=== PATIENT | female | born 1995 | race Caucasian/White ===

== ENCOUNTER → 2019-12-20 10:24 | Outpatient (CLI) | payer OTHER, SELFPAY ==
--- NOTE | 2019-12-20 | DI.US.S_ITS ---
PROCEDURE: US PELVIC COMPLETE INDICATIONS: IUD CHECK; PAIN TECHNIQUE: Real-time scanning was performed of the pelvic organs, with image documentation. Additional endovaginal scanning was necessary due to incomplete visualization of the adnexal and endometrial structures by transabdominal scanning. COMPARISON: None. FINDINGS: Transabdominal scanning: Limited scanning through the kidneys shows no hydronephrosis. No pathologic free abdominal or pelvic fluid. Endovaginal scanning: Uterus: Uterus is normal in size at 3.7 x 5.5 x 9.0 cm, anteverted. The endometrium measures 8.5 mm in combined thickness. There is a centrally positioned IUD but low in the lower uterine segment. Ovaries: The ovaries bilaterally appear normal in size and echotexture. IMPRESSION: The uterus is anteverted. An IUD is seen centrally positioned within the endometrial canal but is low in position at the low uterine segment. This position, also in the setting of anteverted uterus, would predispose to tenderness. Dictated by: Bradley Maddox M.D. on 12/20/2019 at 13:19 Approved by: Bradley Maddox M.D. on 12/20/2019 at 13:21
== END ==
PROVIDERS: Referring Provider Obstetrics & Gynecology; Visit Provider Obstetrics & Gynecology
DX: R10.2 Pelvic and perineal pain (principal); N94.12 Deep dyspareunia; Z30.431 Encounter for routine checking of intrauterine contraceptive device
CPT/HCPCS: 76830; 76856

== ENCOUNTER → 2020-06-05 08:30 | Outpatient (CLI) | payer OTHER, SELFPAY ==
--- NOTE | 2020-06-05 | DI.US.S_ITS ---
PROCEDURE: US PELVIC COMPLETE INDICATIONS: IUD CHECK TECHNIQUE: Real-time scanning was performed of the pelvic organs, with image documentation. Additional endovaginal scanning was necessary due to incomplete visualization of the adnexal and endometrial structures by transabdominal scanning. COMPARISON: None. FINDINGS: Transabdominal scanning: Limited scanning through the kidneys shows no hydronephrosis. No pathologic free abdominal or pelvic fluid. Endovaginal scanning: Uterus: Uterus is normal in size at 8.5 x 3.2 x 5.5 cm. The endometrium measures 3.0 mm in combined thickness. Echotexture of the uterus is normal. Intrauterine device is centrally positioned within the uterus. Ovaries: Right ovary measures 3.8 x 1.8 x 2.5 centimeters. Left ovary measures 3.2 x 2.0 x 2.7 centimeters. Ovaries are sonographically normal. IMPRESSION: Intrauterine device centrally positioned within the uterus. Dictated by: Lexis Vaz MD, PhD on 06/05/2020 at 15:30 Approved by: Lexis Vaz MD, PhD on 06/05/2020 at 15:31
== END ==
PROVIDERS: PCP Family Medicine; Referring Provider Advanced Practice Midwife; Visit Provider Advanced Practice Midwife
DX: Z30.431 Encounter for routine checking of intrauterine contraceptive device (principal)
CPT/HCPCS: 76830; 76856

== ENCOUNTER 2021-06-28 07:51 | Emergency (ER) | payer OTHER, SELFPAY ==
[2021-06-28 08:12] VITALS: BP 123/88; PULSE 78; RESP 16; TEMP 36.2; O2SAT 98; BMI 29.2
[2021-06-28 08:27] LABS: RBC Urine None Seen (0-5/HPF)
[2021-06-28 08:31] LABS: Pregnancy Test Urine Negative (Negative)
[2021-06-28 08:34] LABS: Amorphous Sediment Urine 2+; Bacteria Urine Few (2-10); Culture Indicated Urine Cult Not Indicated; Squamous Epithelial Cell Urine 10-30 /HPF (0-5/HPF); WBC Urine 1-5/HPF (0-5/HPF)
[2021-06-28 08:39] LABS: Add Manual Diff / Slide Review NO; Basophils Absolute Auto 0 /uL (0-100); Basophils Percent Auto 0.8 % (0-2); Eosinophils Absolute Auto 100 /uL (0-450); Eosinophils Percent Auto 1.4 % (2-4); Hematocrit 41.6 % (36-46); Hemoglobin 13.9 g/dL (12.0-16.0); Lymphocytes Absolute Auto 2500 /uL (1100-4500); Lymphocytes Percent Auto 39.6 % (25-40); Mean Corpuscular HGB Conc 33.3 % (30-36); Mean Corpuscular Hemoglobin 31.1 PG (26-34); Mean Corpuscular Volume 93.3 fL (80-100); Monocytes Absolute Auto 500 /uL (0-900); Monocytes Percent Auto 8.7 % (3-14); Neutrophils Absolute Auto 3100 /uL (1500-7000); Neutrophils Percent Auto 49.5 % (50-75); Platelet Count 265 X10^3/uL (150-400); Red Blood Cell Count 4.47 X10^6/uL (4.0-5.2); Red Cell Distribution Width 12.5 % (11.6-14.8); White Blood Cell Count 6.2 X10^3/uL (4.5-11.0)
[2021-06-28 08:42] LABS: BUN Creatinine Ratio 18.8 (6-22); Blood Urea Nitrogen 12 mg/dL (7-17); Calcium 9.1 mg/dL (8.4-10.2); Carbon Dioxide 24 mmol/L (22-32); Chloride 107 mmol/L (98-107); Estimated Glomerular Filt Rate > 60.0 mL/min (>60); Ethanol (ETOH) 177 mg/dL; Glucose 96 mg/dL (70-100); HEMOLYSIS < 15 (0-50); Potassium 4.3 mmol/L (3.4-5.1); Sodium 141 mmol/L (137-145)
--- NOTE | 2021-06-28 11:19 | ED_ITS ---
HPI - Alcohol General Chief Complaint: Toxicology Problem Stated Complaint: WANTS ALCOHOL DETOX Time Seen by Provider: 06/28/21 11:19 Source: patient Mode of arrival: Family Vehicle Limitations: no limitations History of Present Illness HPI narrative: This is a 25-year-old female who comes to the emergency departmen t requesting medication to help with alcohol withdrawal. Patient would like to stop drinking alcohol. Her last drink was last night. She does not wish to go inpatient facility. She has tried AA in the past but has not found particularly helpful. She had heard that there is medication that can be helpful for stopping alcohol use. She states she drinks about 15 beers daily. She has found that it is inhibiting her relationships and current life situation. She has been shaky in the past but she has never had seizures, hallucination or altered mental status. Patient denies any other medical issues. She denies any prior surgeries. She denies any daily medications. She denies any tobacco. She denies any THC or recreational drugs. Patient is open to being contacted by social Work over the phone. She does not have a primary care to follow up with. We did discuss their options such as Antabuse which can be a daily medication if she is interested but would need a primary care physician to help prescribed this. Related Data Previous Rx's Medication Instructions Recorded chlordiazepoxide HCl 25 mg capsule 25 mg PO Q6H #11 cap 06/28/21 Allergies Allergy/AdvReac Type Severity Reaction Status Date / Time No Known Drug Allergies Allergy Verified 06/28/21 08:09 Review of Systems Review of Systems ROS Unobtainable: All systems reviewed & are unremarkable except as noted in HPI and below Patient History Social History Smoking Status: Current every day smoker Smoking Status: Current every day smoker tobacco type: cigarettes alcohol intake frequency: 3 or more drinks per day Alcohol type: beer Substance Use Type: does not use Exam Narrative Exam Narrative: GENERAL: Alert and oriented x three, female in mild distress. HEENT: Head normocephalic, atraumatic, EOMI, pupils reactive, face symmetric, moist mucous membranes NECK: Supple, full range of motion CARDIOVASCULAR: Regular rate and rhythm without murmurs, rubs or gallops. RESPIRATORY: Breath sounds equal bilaterally, no wheezes rales or rhonchi. ABDOMEN: Soft, nontender. Normoactive bowel sounds all 4 quadrants. No guarding or rebound, rigidity, no mass : No CVA tenderness EXTREMITIES: Normal range of motion, no clubbing or edema. Neurovascularly intact NEUROLOGICAL: Cranial nerves II through XII grossly intact. Moving all ex tremities. No tremor. SKIN: Warm, dry, no petechiae, no rashes or lesions. Initial Vital Signs Initial Vital Signs: Vital Signs Temperature 97.2 F L 06/28/21 08:12 Pulse Rate 78 06/28/21 08:12 Respiratory Rate 16 06/28/21 08:12 Blood Pressure 123/88 06/28/21 08:12 Pulse Oximetry 98 06/28/21 08:12 Course Orders Ordered: ED Orders 06/28/21 08:18 Urine Drug Screen, Rapid Stat 06/28/21 08:20 CBC Auto Diff [Complete Blood Count AUTO DIFF] Stat CHEM7 [Basic Metabolic Panel] Stat Ethanol (ETOH) Stat Test Urine Stat Urine Microscopic Stat Vital Signs Vital signs: Vital Signs - 8 hr 06/28/21 08:12 06/28/21 11:26 Temperature 97.2 F L Pulse Rate 78 83 Respiratory Rate 16 Blood Pressure 123/88 119/76 Pulse Oximetry 98 97 MDM - Alcohol Lab Data Result diagrams: 06/28/21 08:20 06/28/21 08:20 Labs: Lab Results 06/28/21 06/28/21 06/28/21 Range/Units 08:20 08:20 08:20 WBC 6.2 (4.5-11.0) X10^3/uL RBC 4.47 (4.0-5.2) X10^6/uL Hgb 13.9 (12.0-16.0) g/dL Hct 41.6 (36-46) % MCV 93.3 (80-100) fL MCH 31.1 (26-34) PG MCHC 33.3 (30-36) % RDW 12.5 (11.6-14.8) % Plt Count 265 (150-400) X10^3/uL Neut % (Auto) 49.5 L (50-75) % Lymph % (Auto) 39.6 (25-40) % [place] % (Auto) 8.7 (3-14) % Eos % (Auto) 1.4 L (2-4) % Baso % (Auto) 0.8 (0-2) % Neut # (Auto) 3100 (6473-3254) /uL Lymph # (Auto) 2500 (3423-3542) /uL [place] # (Auto) 500 (0-900) /uL Eos # (Auto) 100 (0-450) /uL Baso # (Auto) 0 (0-100) /uL Sodium 141 (137-145) mmol/L Potassium 4.3 (3.4-5.1) mmol/L Chloride 107 (98-107) mmol/L Carbon Dioxide 24 (22-32) mmol/L BUN 12 (7-17) mg/dL Creatinine 0.64 (0.52-1.04) mg/dL Estimated GFR > 60.0 (>60) mL/min BUN/Creatinine Ratio 18.8 (6-22) Glucose 96 (70-100) mg/dL Calcium 9.1 (8.4-10.2) mg/dL Urine RBC None seen (0-5/HPF) Urine WBC 1-5/hpf (0-5/HPF) Ur Squamous Epith Cells 10-30 /hpf H (0-5/HPF) Amorphous Sediment 2+ Urine Bacteria Few (2-10) H (None) Ur Culture Indicated? Cult not indicated Urine Test (Negative) U Opiates 300ng/mL cut (Negative) Ur Oxycodone Screen (Negative) Urine Methadone Screen (Negative) Ur Barbiturates Screen (Negative) U Tricyclic Antidepress (Negative) Ur Phencyclidine Scrn (Negative) Ur Amphetamines Screen (Negative) U Methamphetamines Scrn (Negative) Ur MDMA Scrn (Ecstasy) (Negative) U Benzodiazepines Scrn (Negative) Urine Cocaine Screen (Negative) U Marijuana (THC) Screen (Negative) Ethyl Alcohol 177 H ( - 10) mg/dL 06/28/21 06/28/21 Range/Units 08:20 08:20 WBC (4.5-11.0) X10^3/uL RBC (4.0-5.2) X10^6/uL Hgb (12.0-16.0) g/dL Hct (36-46) % MCV (80-100) fL MCH (26-34) PG MCHC (30-36) % RDW (11.6-14.8) % Plt Count (150-400) X10^3/uL Neut % (Auto) (50-75) % Lymph % (Auto) (25-40) % [place] % (Auto) (3-14) % Eos % (Auto) (2-4) % Baso % (Auto) (0-2) % Neut # (Auto) (6952-1459) /uL Lymph # (Auto) (0062-1311) /uL [place] # (Auto) (0-900) /uL Eos # (Auto) (0-450) /uL Baso # (Auto) (0-100) /uL Sodium (137-145) mmol/L Potassium (3.4-5.1) mmol/L Chloride (98-107) mmol/L Carbon Dioxide (22-32) mmol/L BUN (7-17) mg/dL Creatinine (0.52-1.04) mg/dL Estimated GFR (>60) mL/min BUN/Creatinine Ratio (6-22) Glucose (70-100) mg/dL Calcium (8.4-10.2) mg/dL Urine RBC (0-5/HPF) Urine WBC (0-5/HPF) Ur Squamous Epith Cells (0-5/HPF) Amorphous Sediment Urine Bacteria (None) Ur Culture Indicated? Urine Test Negative (Negative) U Opiates 300ng/mL cut Negative (Negative) Ur Oxycodone Screen Negative (Negative) Urine Methadone Screen Negative (Negative) Ur Barbiturates Screen Negative (Negative) U Tricyclic Antidepress Negative (Negative) Ur Phencyclidine Scrn Negative (Negative) Ur Amphetamines Screen Negative (Negative) U Methamphetamines Scrn Negative (Negative) Ur MDMA Scrn (Ecstasy) Negative (Negative) U Benzodiazepines Scrn Negative (Negative) Urine Cocaine Screen Negative (Negative) U Marijuana (THC) Screen Negative (Negative) Ethyl Alcohol ( - 10) mg/dL MDM Narrative Medical decision making narrative: This is a 25-year-old female requesting alcohol detox. Patient prefers to return home and attempt with oral medication. She has tried a in the past has not been very helpful but she is open to having social Work reach out to her. She is comfortable returning home without having a [id number] conversation. Patient does not have a primary care physician so also attempt to her sure referral for options for follow-up. Patient's labs are reassuring. Patient does not appear to be in acute withdrawal at this moment. Discharge Plan Departure Patient Disposition: Home Clinical Impression: Alcohol abuse, Medication requested Instructions: Alcohol and Stress: There are Safer Ways to [place], Drug and Alcohol Withdrawal Activity Restrictions/Additional Instructions: Follow-up with a primary care provider for recheck and options for daily medications that might be helpful with cessation of alcohol use. Our social psychologist will be contacting you for possible resources and also to potentially help you find a primary care physician. I wish you luck in your goal at alcohol cessation. Take medication as prescribed. This medication can make you sleepy do not drive, perform hazardous activities or make any major decisions while taking it. Do not take this medication if you are actively drinking alcohol. Prescription sent to [facility] in [place]. Please return for altered mental status, passing out, new chest pain or shortness of breath, persistent vomiting, worsening shaking, hallucinations, seizure-like activity or other new or concerning symptoms. Prescriptions: New chlordiazepoxide HCl 25 mg capsule 25 mg PO Q6H Qty: 11 RF: 0 Referrals: Nikita Srivastava MD [Primary Care Provider] -
[2021-06-28 11:26] VITALS: BP 119/76; PULSE 83; O2SAT 97
[2021-06-28 11:47] LABS: UR Morphine/Opiate cutoff 300 Negative (Negative); Ur Creatinine Normal (Normal); Ur Specific Gravity Normal (Normal); Urine Amphetamines Negative (Negative); Urine Barbiturates Negative (Negative); Urine Benzodiazepines Negative (Negative); Urine Cocaine Negative (Negative); Urine MDMA Negative (Negative); Urine Methadone Negative (Negative); Urine Methamphetamines Negative (Negative); Urine Oxycodone Negative (Negative); Urine Phencyclidine Negative (Negative); Urine Tetrahydrocannabinol Negative (Negative); Urine Tricyclic Antidepressant Negative (Negative); Urine pH Normal (Normal)
--- NOTE | 2021-06-28 16:16 | CM.SWNOTE ---
CERAMIC SAW TENDER F/U Note CERAMIC SAW TENDER receives consult after patient d/c's from ED. Patient is 25 y/o female who presented to the ED seeking ETOH detox, patient choice to detox at home after medical clearance. ED provider Dr. Cook informs CERAMIC SAW TENDER that patient is in need of establishing care with PCP for f/u. CERAMIC SAW TENDER calls patient and patient endorses that she has tried to establish care with a PCP but could not find a provider with openings. Patient endorses that her insurance company even tried to assist her. CERAMIC SAW TENDER endorses that CERAMIC SAW TENDER can see if [facility] or [facility] providers in [place] have openings and patient indicates agreement. CERAMIC SAW TENDER calls [facility] provider line and it is reported that there are no providers with openings. CERAMIC SAW TENDER calls [facility] provider line and patient is scheduled for ED f/u appt with ELI Isaac for Thursday07/05/21 at 2:30 pm. It is reported that patient will need to schedule establish care appt following this ED f/u appt. CERAMIC SAW TENDER calls patient and leaves VM with patient with this information and address for [facility]. CERAMIC SAW TENDER endorses that patient can return call with any further questions or inquiries. Plan: patient to f/u with PCP appt on 07/05/21
== END 2021-06-28 11:58 | disposition home or self-care (01) ==
PROVIDERS: Emergency Provider Emergency Medicine; PCP Family Medicine
DX: F10.129 Alcohol abuse with intoxication, unspecified (principal); Y90.6 Blood alcohol level of 120-199 mg/100 ml
CPT/HCPCS: 36415; 80048; 80305; 80320; 81015; 81025; 85025; 99283

== ENCOUNTER 2021-08-20 08:52 | Emergency (ER) | payer OTHER, SELFPAY ==
[2021-08-20 08:55] VITALS: BP 156/113; PULSE 84; RESP 14; TEMP 36.2; O2SAT 98; BMI 28.3
--- NOTE | 2021-08-20 09:21 | PC.NURSE ---
Patient reports hitting her head three times while trying to pull tractor into a trailer. patient state she had no initial LOC but after walking up driveway passed out patient has small scab to top of head, reports headache, with couple episodes of vomiting. Tenderness to neck, no C Spine tenderness. Not on thinners.
[2021-08-20 09:23] VITALS: BP 143/94; PULSE 66; RESP 12; O2SAT 98
--- NOTE | 2021-08-20 15:37 | ED_ITS ---
HPI - Head Injury General Chief complaint: Head Injury Stated complaint: POSS CONCUSSION Time Seen by Provider: 08/20/21 08:57 Source: patient Mode of arrival: Ambulatory Limitations: no limitations History of Present Illness HPI Narrative: 26-year-old female daily smoker with no significant medical history presents with a chief complaint of ongoing symptoms after a head injury a few days ago. She states that she was transferring heavy objects into a vehicle and hit her head on the roof for tailgate a few times. She has full recall of the event, is acting at her neurologic baseline per friends and family. She did have what she thinks was a brief level of consciousness few minutes after the event but nothing in the past few days. She states that she vomited yesterday morning and again this morning but is otherwise well and free of complaint. She takes no blood thinners Related Data Previous Rx's Medication Instructions Recorded chlordiazepoxide HCl 25 mg capsule 25 mg PO Q6H #11 cap 06/28/21 ondansetron 4 mg disintegrating 4 mg PO TID-QID PRN #10 tab 08/20/21 tablet Allergies Allergy/AdvReac Type Severity Reaction Status Date / Time No Known Drug Allergies Allergy Verified 08/20/21 09:00 Review of Systems Review of Systems Narrative: GENERAL: Denies chills, fatigue, malaise, fever, sweats. HEENT: Denies sinus pain, ear pain, sore throat, difficulty swallowing, dizziness. RESPIRATORY: Denies dyspnea, cough, wheezing, hemoptysis, sputum. CARDIOVASCULAR: Denies chest pain, palpitations, orthopnea, edema, GASTROINTESTINAL: See HPI : Denies dysuria, frequency, incontinence, hematuria, urinary retention. MUSCULOSKELETAL: denies weakness, joint pain, or bony pain SKIN: Denies rash, skin lesions, or other NEUROLOGIC: See HPI PSYCHIATRIC: No concerning psychosocial issues. 12 point review of systems is negative except for those stated above Patient History Social History Smoking Status: Current every day smoker Smoking Status: Current every day smoker tobacco type: cigarettes alcohol intake frequency: 3 or more drinks per day Alcohol type: beer Substance Use Type: does not use Exam Narrative Exam Narrative: GENERAL: [26] year old patient appears stated age. Well- developed patient, in mild distress. GCS 15 HEAD: Atraumatic. Normocephalic. No hematoma or evidence of depressed skull fracture EYES: Pupils equal round and reactive. No hyphema Extraocular motions intact. No scleral icterus. No injection or drainage. ENT: Nose without bleeding, purulent drainage. Throat without erythema, tonsillar hypertrophy or exudate. Airway patent. NECK: Trachea midline. Non tender, no step-offs or crepitance CARDIOVASCULAR: Regular rate and rhythm without murmurs, gallops, or rubs. RESPIRATORY: Clear to auscultation. Breath sounds equal bilaterally. No wheezes, rales, or rhonchi. GASTROINTESTINAL: Abdomen soft, non-tender, nondistended. EXTREMITIES: No edema or joint tenderness. BACK: Nontender without deformity or crepitance. No flank tenderness. NEURO: AOx3. SKIN: No rash or erythema of visible areas Initial Vital Signs Initial Vital Signs: Vital Signs Temperature 97.2 F L 08/20/21 08:55 Pulse Rate 84 08/20/21 08:55 Respiratory Rate 14 08/20/21 08:55 Blood Pressure 156/113 H 08/20/21 08:55 Pulse Oximetry 98 08/20/21 08:55 Course Vital Signs Vital signs: Vital Signs - 8 hr 08/20/21 08:55 08/20/21 09:23 Temperature 97.2 F L Pulse Rate 84 66 Respiratory Rate 14 12 Blood Pressure 156/113 H 143/94 H Pulse Oximetry 98 98 MDM - Head Injury MDM Narrative Medical decision making narrative: Extensive discussion with the patient, we reviewed the [place] head CT rules and discussed the risks and benefits of imaging. After this discussion we sure the opinion that holding off on imaging for now is most appropriate, she has been given return precautions and questions have been answered to her apparent satisfaction Discharge Plan Departure Patient Disposition: Home Clinical Impression: Closed head injury Qualifiers: Encounter type: initial encounter Qualified Code(s): S09.90XA - Unspecified injury of head, initial encounter Instructions: Concussion Activity Restrictions/Additional Instructions: *You have been diagnosed with [head injury with concussion] *What to do: *Please continue to take your regular medications as directed. [x ] New medication prescriptions sent to your pharmacy: [[facility] in [place] ] [ ] New medication written as a paper prescription [ ] No new medications given *You have a slight concussion and will likely have a mild headache and some nausea for a few days. Avoiding highly stimulating activities and even TV or computers may be helpful in minimizing your symptoms. Avoid activities that will put you at risk for another head injury for at least a week. You can take tylenol or motrin for headache or the prescription provided for nausea/vomiting. Return for worsening or persistent symptoms *If you do not have a primary care provider please contact the [facility] Resource line at [phone]. They will ask some questions about your medical history and help get you set up with a doctor in the community. *Return to Emergency Department if you should have any new, worsening or concerning symptoms, such as [fever greater than 101 F, shaking chills, worsening pain, persistent vomiting or other bothersome symptoms] Prescriptions: New ondansetron 4 mg tablet,disintegrating 4 mg PO TID-QID PRN (Reason: nausea and vomiting) Qty: 10 RF: 0 No Action chlordiazepoxide HCl 25 mg capsule 25 mg PO Q6H Qty: 11 RF: 0 Referrals: Nikita Srivastava MD [Primary Care Provider] - Stand Alone Forms: Work Release Note
== END 2021-08-20 09:23 | disposition home or self-care (01) ==
PROVIDERS: Emergency Provider Emergency Medicine; PCP Family Medicine
DX: S09.90XA Unspecified injury of head, initial encounter (principal); W22.8XXA Striking against or struck by other objects, initial encounter
CPT/HCPCS: 99281

== ENCOUNTER 2022-06-02 18:40 | Emergency (ER) | payer OTHER, MEDICAID, SELFPAY ==
[2022-06-02 18:45] VITALS: BP 160/86; PULSE 98; RESP 18; TEMP 36.5; O2SAT 95; BMI 28.3
--- NOTE | 2022-06-02 18:57 | DI.RAD.S_ITS ---
PROCEDURE: XR CHEST 1V INDICATIONS: chest pain TECHNIQUE: One view of the chest was acquired. COMPARISON: None. FINDINGS: Surgical changes and devices: None. Lungs and pleura: Lungs are clear. No pleural effusions or pneumothorax. Mediastinum: Mediastinal contours appear normal. Heart size is normal. Bones and chest wall: No suspicious bony lesions. Overlying soft tissues appear unremarkable. IMPRESSION: No acute cardiopulmonary abnormality. Dictated by: Ronen Niño M.D. on 06/02/2022 at 20:17 Approved by: Ronen Niño M.D. on 06/02/2022 at 20:18
[2022-06-02 19:06] LABS: Add Manual Diff / Slide Review NO; Basophils Absolute Auto 100 /uL (0-100); Basophils Percent Auto 0.8 % (0-2); Eosinophils Absolute Auto 100 /uL (0-450); Eosinophils Percent Auto 0.9 % (2-4); Hematocrit 43.4 % (36-46); Hemoglobin 14.9 g/dL (12.0-16.0); Lymphocytes Absolute Auto 2900 /uL (1100-4500); Lymphocytes Percent Auto 46.4 % (25-40); Mean Corpuscular HGB Conc 34.2 % (30-36); Mean Corpuscular Hemoglobin 31.9 PG (26-34); Mean Corpuscular Volume 93.1 fL (80-100); Monocytes Absolute Auto 700 /uL (0-900); Monocytes Percent Auto 11.4 % (3-14); Neutrophils Absolute Auto 2500 /uL (1500-7000); Neutrophils Percent Auto 40.5 % (50-75); Platelet Count 322 X10^3/uL (150-400); Red Blood Cell Count 4.66 X10^6/uL (4.0-5.2); Red Cell Distribution Width 13.2 % (11.6-14.8); White Blood Cell Count 6.2 X10^3/uL (4.5-11.0)
[2022-06-02 19:21] LABS: Alanine Aminotransferase 70 IU/L (<35); Albumin 4.6 g/dL (3.5-5.0); Albumin Globulin Ratio 1.4 (1.0-2.8); Alkaline Phosphatase 42 U/L (38-126); Aspartate Aminotransferase 61 IU/L (14-36); BUN Creatinine Ratio 13.5 (6-22); Bilirubin Total 0.3 mg/dL (0.2-1.3); Blood Urea Nitrogen 10 mg/dL (7-17); Calcium 8.9 mg/dL (8.4-10.2); Carbon Dioxide 26 mmol/L (22-32); Chloride 106 mmol/L (98-107); Creatine Kinase 97 U/L (30-135); Estimated Glomerular Filt Rate > 60 mL/min (>60); Globulin 3.3 g/dL (1.7-4.1); Glucose 106 mg/dL (70-100); HEMOLYSIS < 15 (0-50); Lipase 160 U/L (23-300); Magnesium 2.2 mg/dL (1.6-2.3); Potassium 4.2 mmol/L (3.4-5.1); Sodium 142 mmol/L (137-145); Total Protein 7.9 g/dL (6.3-8.2)
[2022-06-02 19:33] LABS: Troponin I < 0.012 ng/mL (0.01-0.034)
[2022-06-02 20:31] VITALS: PULSE 98; O2SAT 99
[2022-06-02 20:33] VITALS: BP 127/85; PULSE 91; O2SAT 96
--- NOTE | 2022-06-02 20:50 | PC.NURSE ---
Patient pacing in hallway requesting IV to be removed so she can leave. Redirected patient to room, after discussion patient agreeable to stay and wait for evaluation by provider.
--- NOTE | 2022-06-03 06:23 | ED.CHESTPAIN ---
HPI - Chest Pain General Chief Complaint: Chest Pain Stated Complaint: Chest pain Time Seen by Provider: 06/02/22 20:48 Source: patient Mode of arrival: Ambulatory Limitations: no limitations History of Present Illness HPI narrative: Patient LWBS prior to being evaluated. Patient's EKG, CBC, CMP, lipase and troponin are all negative. Related Data Previous Rx's Medication Instructions Recorded chlordiazepoxide HCl 25 mg capsule 25 mg PO Q6H #11 caps 06/28/21 ondansetron 4 mg disintegrating 4 mg PO TID-QID PRN nausea and 08/20/21 tablet vomiting #10 tabs Allergies Allergy/AdvReac Type Severity Reaction Status Date / Time No Known Drug Allergies Allergy Verified 06/02/22 23:15 Patient History Social History Smoking Status: Current every day smoker Smoking Status: Current every day smoker tobacco type: cigarettes alcohol intake frequency: 3 or more drinks per day Alcohol type: beer Substance Use Type: does not use Exam Initial Vital Signs Initial Vital Signs: Vital Signs Temperature 97.7 F 06/02/22 18:45 Pulse Rate 98 H 06/02/22 18:45 Respiratory Rate 18 06/02/22 18:45 Blood Pressure 160/86 H 06/02/22 18:45 Pulse Oximetry 95 06/02/22 18:45 Oxygen Delivery Method 06/02/22 18:45 MDM - Chest Pain Lab Data Result diagrams: 06/02/22 18:50 06/02/22 18:50 Labs: Lab Results 06/02/22 06/02/22 Range/Units 18:50 18:50 WBC 6.2 (4.5-11.0) X10^3/uL RBC 4.66 (4.0-5.2) X10^6/uL Hgb 14.9 (12.0-16.0) g/dL Hct 43.4 (36-46) % MCV 93.1 (80-100) fL MCH 31.9 (26-34) PG MCHC 34.2 (30-36) % RDW 13.2 (11.6-14.8) % Plt Count 322 (150-400) X10^3/uL Neut % (Auto) 40.5 L (50-75) % Lymph % (Auto) 46.4 H (25-40) % [place] % (Auto) 11.4 (3-14) % Eos % (Auto) 0.9 L (2-4) % Baso % (Auto) 0.8 (0-2) % Neut # (Auto) 2500 (4148-7671) /uL Lymph # (Auto) 2900 (4594-6196) /uL [place] # (Auto) 700 (0-900) /uL Eos # (Auto) 100 (0-450) /uL Baso # (Auto) 100 (0-100) /uL Sodium 142 (137-145) mmol/L Potassium 4.2 (3.4-5.1) mmol/L Chloride 106 (98-107) mmol/L Carbon Dioxide 26 (22-32) mmol/L BUN 10 (7-17) mg/dL Creatinine 0.74 (0.52-1.04) mg/dL Estimated GFR > 60 (>60) mL/min BUN/Creatinine Ratio 13.5 (6-22) Glucose 106 H (70-100) mg/dL Calcium 8.9 (8.4-10.2) mg/dL Magnesium 2.2 (1.6-2.3) mg/dL Total Bilirubin 0.3 (0.2-1.3) mg/dL AST 61 H (14-36) IU/L ALT 70 H (<35) IU/L Alkaline Phosphatase 42 (38-126) U/L Total Creatine Kinase 97 (30-135) U/L CK-MB (CK-2) TNP CK-MB (CK-2) Rel Index TNP Troponin I < 0.012 (0.01-0.034) ng/mL Total Protein 7.9 (6.3-8.2) g/dL Albumin 4.6 (3.5-5.0) g/dL Globulin 3.3 (1.7-4.1) g/dL Albumin/Globulin Ratio 1.4 (1.0-2.8) Lipase 160 (23-300) U/L Discharge Plan Departure Patient Disposition: Left Without Being Seen Clinical Impression: Patient left before evaluation by physician
== END 2022-06-02 21:53 | disposition left against medical advice (07) ==
PROVIDERS: Emergency Provider Emergency Medicine; PCP Family Medicine
DX: R07.9 Chest pain, unspecified (principal)
CPT/HCPCS: 36415; 71045; 80053; 82550; 83690; 83735; 84484; 85025; 93005; 99283

== ENCOUNTER 2022-06-02 23:09 | Emergency (ER) | payer OTHER, MEDICAID, SELFPAY ==
[2022-06-02 23:15] VITALS: BP 156/92; PULSE 99; RESP 18; TEMP 36.6; O2SAT 93; BMI 28.3
[2022-06-03 01:50] LABS: Ethanol (ETOH) 371 mg/dL
[2022-06-03 01:55] LABS: Troponin I < 0.012 ng/mL (0.01-0.034)
[2022-06-03 02:10] LABS: COVID19 -Nasal RAPID Negative (Negative)
[2022-06-03 02:22] LABS: D Dimer 250 ng/mL (<230)
--- NOTE | 2022-06-03 02:39 | ED.CHESTPAIN ---
HPI - Chest Pain General Chief Complaint: Chest Pain Stated Complaint: chest pain Time Seen by Provider: 06/03/22 00:07 Source: patient Mode of arrival: Ambulatory Limitations: no limitations History of Present Illness HPI narrative: This is a 26-year-old female with complaint of 6 weeks of left-sided chest pain she describes underneath her breast she states it has been mild until today. Patient was here earlier today, left without being seen but did have labs including troponin, EKG, CBC, CMP and lipase which did not show any acute change. Patient states she has not had any recent trauma or injuries they did do some lifting of heavy furniture recently. She denies any syncope or passing out. She states it is worse with deep inspiration. She is had some shortness of breath. No cough, cold or congestion. She has had some nausea and vomiting particularly in the mornings. No diarrhea, constipation or urinary symptoms. No swelling in her extremities. She denies any past medical issues. She denies any surgeries. She does have a ParaGard IUD, she does smoke, she drinks at least a 6 pack daily and does get withdrawal if she does not have alcohol the following day, denies any illicit or THC. She has had long distance travel several hours in a car sometimes 8 hours at a time several times over the past couple months. She is accompanied by a friend at bedside. Related Data Previous Rx's Medication Instructions Recorded chlordiazepoxide HCl 25 mg capsule 25 mg PO Q6H #11 caps 06/28/21 ondansetron 4 mg disintegrating 4 mg PO TID-QID PRN nausea and 08/20/21 tablet vomiting #10 tabs Allergies Allergy/AdvReac Type Severity Reaction Status Date / Time No Known Drug Allergies Allergy Verified 06/02/22 23:15 Review of Systems Review of Systems ROS Unobtainable: All systems reviewed & are unremarkable except as noted in HPI and below Patient History Social History Smoking Status: Current every day smoker Smoking Status: Current every day smoker tobacco type: cigarettes alcohol intake frequency: 3 or more drinks per day Alcohol type: beer Substance Use Type: does not use Exam Narrative Exam Narrative: GENERAL: Alert and oriented x three, female in [id number] distress. HEENT: Head normocephalic, atraumatic, EOMI, pupils reactive, face symmetric, moist mucous membranes NECK: Supple, full range of motion CARDIOVASCULAR: Regular rate and rhythm without murmurs, rubs or gallops. RESPIRATORY: Breath sounds equal bilaterally, no wheezes rales or rhonchi. Non reproducible chest pain. No tachypnea accessory muscle use. ABDOMEN: Soft, nontender. Normoactive bowel sounds all 4 quadrants. No guarding or rebound, rigidity, no mass : No CVA tenderness EXTREMITIES: Normal range of motion, no clubbing or edema. Neurovascularly intact NEUROLOGICAL: Cranial nerves II through XII grossly intact. Moving all extremities SKIN: Warm, dry, no petechiae, no rashes or lesions. Initial Vital Signs Initial Vital Signs: Vital Signs Temperature 97.8 F 06/02/22 23:15 Pulse Rate 99 H 06/02/22 23:15 Respiratory Rate 18 06/02/22 23:15 Blood Pressure 156/92 H 06/02/22 23:15 Pulse Oximetry 93 06/02/22 23:15 Oxygen Delivery Method 06/02/22 23:15 Course Orders Ordered: ED Orders 06/03/22 00:40 ETOH [Ethanol (ETOH)] Stat Trop I [Troponin I] Stat 06/03/22 01:15 D Dimer Stat 06/03/22 01:25 COVID19 -Nasal RAPID/Pre-Proc Stat 06/03/22 02:56 CT angio chest PE protocol Stat 06/03/22 03:00 Urine Culture Stat Urine Microscopic Stat Discontinued Medications Ketorolac Tromethamine (Ketorolac 30 Mg/Ml Vial) 15 mg IV NOW ONE Stop: 06/03/22 02:58 Last Admin: 06/03/22 03:05 Dose: 15 mg Documented By: MLLiv Vital Signs Vital signs: Vital Signs - 8 hr 06/02/22 23:15 06/03/22 04:11 Temperature 97.8 F Pulse Rate 99 H 85 Respiratory Rate 18 Blood Pressure 156/92 H 117/80 Pulse Oximetry 93 97 Oxygen Delivery Method Room Air Room Air MDM - Chest Pain Lab Data Labs: Lab Results 06/03/22 06/03/22 06/03/22 Range/Units 00:40 01:15 01:25 D-Dimer 250 H (<230) ng/mL Troponin I < 0.012 (0.01-0.034) ng/mL Urine RBC (0-5/HPF) Urine WBC (0-5/HPF) Ur Squamous Epith Cells (0-5/HPF) Urine Bacteria (None) Ur Culture Indicated? Ethyl Alcohol 371 H ( - 10) mg/dL SARS-CoV-2 (PCR) Negative (Negative) 06/03/22 Range/Units 03:00 D-Dimer (<230) ng/mL Troponin I (0.01-0.034) ng/mL Urine RBC 0-1/hpf (0-5/HPF) Urine WBC 0-1/hpf (0-5/HPF) Ur Squamous Epith Cells 1-5 /hpf D (0-5/HPF) Urine Bacteria Few (2-10) H (None) Ur Culture Indicated? Specimen cultured Ethyl Alcohol ( - 10) mg/dL SARS-CoV-2 (PCR) (Negative) Point of Care Testing Test Results Negative Urine Dip Bedside Urine Glucose Negative Bedside Urine Bilirubin - Negative Bedside Urine Ketone - Negative Urine Specific Sharon 1.015 Bedside Urine Occult Blood +++ Bedside Urine pH 6.5 Bedside Urine Protein - Negative Bedside Urine Urobilinogen - Negative Bedside Urine Nitrite - Negative Bedside Urine Leukocytes + 70 Esterase Imaging Data Chest x-ray: Radiologist's Impression: Patite Garcia??26??F??1995 ? Allergy/Adv: No Known Drug Allergies Close Chest X-Ray (Signed) RenayRonen - 06/02/22 Pelvis Ultrasound (Signed) Lexis Vaz - 06/05/20 Pelvis Ultrasound (Signed) Bradley Maddox - 12/20/19 Launch?[address] [address] XRay Report Signed Patient: Pattie Garcia MR#: [id number] : 1995 Acct:[id number] Age/Sex: 26 / F Date of Service: 06/02/22 Loc: ED Accession Number: [id number] ?? Procedure: XR chest 1V Ordering Provider: Vanesa Cook D.O. PROCEDURE:? XR CHEST 1V ? INDICATIONS:? chest pain ? TECHNIQUE:? One view of the chest was acquired.? ? COMPARISON:? None. ? FINDINGS:? ? Surgical changes and devices:? None.? ? Lungs and pleura:? Lungs are clear.? No pleural effusions or pneumothorax.? ? Mediastinum:? Mediastinal contours appear normal.? Heart size is normal.? ? Bones and chest wall:? No suspicious bony lesions.? Overlying soft tissues appear unremarkable.? ? IMPRESSION:? No acute cardiopulmonary abnormality. ? ? ? Dictated by: Ronen Niño M.D. on 06/02/2022 at 20:17 ? ? Approved by: Ronen Niño M.D. on 06/02/2022 at 20:18?? CT scan - chest: Radiologist's Impression: No pulmonary emboli. Heart size normal. No mediastinal mass or lymphadenopathy. Lungs are clear. No acute process upper abdomen, no acute or aggressive osseous lesions. ECG Data Attestation: I personally reviewed and interpreted this ECG as follows: Interpretation: Sinus rhythm rate of 91 NM 152 QRS is 76 and QTC of 457. No acute ST changes appreciated. MDM Narrative Medical decision making narrative: This is a 26-year-old female with history of left-sided chest pain she describes for 5 weeks that has been pleuritic and acutely worsened today. No acute trauma, patient does smoke, she does have a ParaGard IUD, she does drink alcohol she states what heavily at least a 6 pack daily. There is potential for trauma that she does not recall, pulmonary emboli, patient was here earlier today had a CBC, CMP, lipase and troponin with negative EKG and no other acute changes. Patient did appear to be intoxicated when she left, ETOH is elevated. COVID swab is negative. Patient does have muscle risk factors for pulmonary emboli and D-dimer was elevated at 250. Discussed with patient she is agreeable for IV and PE scan. Pe scan is negative. She does not have any other emergent causes at this time. Discussed differential. Patient is not interested in detox she does have withdrawal symptoms from alcohol at times. She has a benign abdominal exam with no signs of trauma. Return precautions discussed all questions answered. Discharge Plan Departure Patient Disposition: Home Clinical Impression: Chest pain Activity Restrictions/Additional Instructions: Follow up for recheck with your physician. Your imaging and labs today do not show any major changes. I would recommend decreasing your alcohol intake or stopping altogether. If interested I can have the social organization professor reach out to you for resources. You can take ibuprofen up 600 mg every 6 hours as needed for pain. Please return for passing out, worsening symptoms, persistent vomiting, new shortness of breath, new swelling in her extremities, bruising new chest or abdomen or other new or concerning symptoms. Prescriptions: No Action ondansetron 4 mg tablet,disintegrating 4 mg PO TID-QID PRN (Reason: nausea and vomiting) Qty: 10 0RF chlordiazepoxide HCl 25 mg capsule 25 mg PO Q6H Qty: 11 0RF Rx Instructions: Take 1 p.o. x6 hours x1 day, 1 p.o. x8 hours x1 day, 1 p.o. times 12 hours x1 day, 1 p.o. q.h.s. x2 days [address] [address]ZIjk ReportSigned Patient: Gregorio Vincent AMR#: [id number]: 07/03/2001Acct:[id number]/Sex: 19 / MDate of Service: 06/28/21Loc: EDAccession Number: [id number] Procedure: XR chest 1V Ordering Provider: Vanesa Cook D.O. PROCEDURE: XR CHEST 1V INDICATIONS: cough, sore throat, chest pain TECHNIQUE: One view of the chest was acquired. COMPARISON: None. FINDINGS: Surgical changes and devices: None. Lungs and pleura: Lungs are clear. No pleural effusions or pneumothorax. Mediastinum: Mediastinal contours appear normal. Heart size is normal. Bones and chest wall: No suspicious bony lesions. Overlying soft tissues appear unremarkable. IMPRESSION: No acute cardiopulmonary abnormality Dictated by: Arsenio Palm M.D. on 06/28/2021 at 11:07 Approved by: Arsenio Palm M.D. on 06/28/2021 at 11:09 Referrals: Nikita Srivastava MD [Primary Care Provider] -
--- NOTE | 2022-06-03 02:56 | DI.CT.S_ITS ---
PROCEDURE: CT ANGIO CHEST PE PROTOCOL INDICATIONS: Left sided chest pain TECHNIQUE: After the administration of intravenous contrast, 2 mm thick sections acquired from the pulmonary apices to the posterior costophrenic angles. 3-dimensional maximum intensity projection (MIP) coronal and sagittal reformats were then acquired through the thorax. For radiation dose reduction, the following was used: automated exposure control, adjustment of mA and/or kV according to patient size. COMPARISON: None. FINDINGS: Image quality: Excellent. Pulmonary arteries: Pulmonary arteries are normal in size, and demonstrate no intraluminal filling defects to suggest central pulmonary embolism. Lungs and pleura: Lungs are clear. No pleural effusions or pneumothorax. Central and peripheral airways are patent. Mediastinum: Heart size is normal, without pericardial effusion. No mediastinal or hilar adenopathy. Thoracic aorta is normal in caliber and enhancement. Esophagus is normal in caliber, without hiatal hernia. Bones and chest wall: No suspicious bony lesions. Ribs and thoracic spine appear intact throughout. Thyroid gland is normal. No axillary or supraclavicular adenopathy. Abdomen: Visualized upper abdominal solid organs appear normal in the early arterial phase of enhancement. IMPRESSION: No pulmonary embolus. No acute finding of the chest. Comment: Final report is concordant with preliminary interpretation by [facility] Dictated by: Arsenio Palm M.D. on 06/03/2022 at 7:21 Approved by: Arsenio Palm M.D. on 06/03/2022 at 7:22
[2022-06-03] MEDS: KETOROLAC 30 MG/ML VIAL 15 MG IV (03:05)
[2022-06-03 03:55] LABS: Bacteria Urine Few (2-10); Culture Indicated Urine Specimen Cultured; RBC Urine 0-1/HPF (0-5/HPF); Squamous Epithelial Cell Urine 1-5 /HPF (0-5/HPF); WBC Urine 0-1/HPF (0-5/HPF)
[2022-06-03 04:11] VITALS: BP 117/80; PULSE 85; O2SAT 97
== END 2022-06-03 05:40 | disposition home or self-care (01) ==
PROVIDERS: Emergency Provider Emergency Medicine; PCP Family Medicine
DX: R07.9 Chest pain, unspecified (principal); R11.2 Nausea with vomiting, unspecified; F10.129 Alcohol abuse with intoxication, unspecified; Y90.8 Blood alcohol level of 240 mg/100 ml or more; Z97.5 Presence of (intrauterine) contraceptive device; Z20.822 Contact with and (suspected) exposure to COVID-19
CPT/HCPCS: 36415; 71045; 71275; 80053; 80320; 81003; 81015; 81025; 82550; 83690; 83735; 84484; 85025; 85379; 87086; 87635; 93005; 93010; 96374; 99284; C9803; J1885; Q9967

== ENCOUNTER 2023-01-15 13:35 | Emergency (ER) | payer OTHER, MEDICAID, SELFPAY ==
[2023-01-15 14:50] VITALS: BP 128/70; PULSE 72; RESP 16; TEMP 36.9; O2SAT 98; BMI 29.2
[2023-01-15 15:51] LABS: Add Manual Diff / Slide Review NO; Basophils Absolute Auto 0 /uL (0-100); Basophils Percent Auto 0.8 % (0-2); Eosinophils Absolute Auto 100 /uL (0-450); Eosinophils Percent Auto 1.6 % (2-4); Hematocrit 40.5 % (36-46); Hemoglobin 13.6 g/dL (12.0-16.0); Lymphocytes Absolute Auto 1700 /uL (1100-4500); Lymphocytes Percent Auto 29.7 % (25-40); Mean Corpuscular HGB Conc 33.7 % (30-36); Mean Corpuscular Hemoglobin 30.9 PG (26-34); Mean Corpuscular Volume 91.8 fL (80-100); Monocytes Absolute Auto 700 /uL (0-900); Monocytes Percent Auto 11.3 % (3-14); Neutrophils Absolute Auto 3300 /uL (1500-7000); Neutrophils Percent Auto 56.6 % (50-75); Platelet Count 250 X10^3/uL (150-400); Red Blood Cell Count 4.42 X10^6/uL (4.0-5.2); Red Cell Distribution Width 12.5 % (11.6-14.8); White Blood Cell Count 5.9 X10^3/uL (4.5-11.0)
--- NOTE | 2023-01-15 15:52 | DI.CT.S_ITS ---
PROCEDURE: CT KIDNEY URETER BLADDER (KUB) INDICATIONS: Lt flank pain worse over 2 months TECHNIQUE: Axial sections were acquired from the lung bases to the pubic symphysis. Coronal and sagittal reformats were performed. For radiation dose reduction, the following was used: automated exposure control, adjustment of mA and/or kV according to patient size. COMPARISON: None. FINDINGS: Image quality: Excellent. Lung bases: Unremarkable. Heart: No significant findings. URINARY: Right Kidney: No stones or hydronephrosis. Right Ureter: No hydroureter. Left Kidney: No stones or hydronephrosis. Left Ureter: No hydroureter. Bladder: Normal wall thickness. No stones. ABDOMEN: Liver: Unremarkable. Gallbladder: Unremarkable. Biliary ducts: Unremarkable. Pancreas: Unremarkable. Spleen: Unremarkable. Adrenal Glands: Unremarkable. Stomach and Bowel: Stomach, small bowel loops, and colon are unremarkable. The appendix is not visualized; however there is no discrete right lower quadrant fluid or fat stranding to suggest acute appendicitis. Peritoneum: No abnormal intraperitoneal fluid. No free air. Ventral Wall: No hernia. Abdominal Nodes: No enlarged retroperitoneal or mesenteric lymph nodes. Vessels: Aorta and inferior vena cava are normal in size. PELVIS: Pelvic Organs: Unremarkable. Within the central uterine fundus. Pelvic Nodes: Unremarkable. Miscellaneous: No inguinal hernias are seen. Bones: Unremarkable. IMPRESSION: 1. No hydronephrosis, nephrolithiasis, hydroureter, or ureterolithiasis. 2. No acute intra-abdominal findings. The appendix is not visualized; however there are no ancillary findings to suggest acute appendicitis. Dictated by: María Elena Fink M.D. on 01/15/2023 at 16:37 Approved by: María Elena Fink M.D. on 01/15/2023 at 16:40
--- NOTE | 2023-01-15 15:53 | ED.BACK ---
HPI - Back Pain/Injury General Chief Complaint: Back Pain/Injury Stated Complaint: ABD pain Time Seen by Provider: 01/15/23 15:29 Source: patient History of Present Illness HPI Narrative: This is a 19-year-old female presents to the emergency department complaining of left flank pain for 8 months which has gotten worse over last 3 months. She states that she went to [facility] emergency department and had this evaluated with a urine test and some blood work and was discharged home with ibuprofen and recommended to treat this as a muscle strain. She denies fever, chills, nausea vomiting, denies any stool changes or pain related to food. She denies any groin pain bilaterally, states her last menstrual cycle was 2 weeks ago, denies any vaginal discharge changes, pelvic pain, hip pain or radiculopathy symptoms to extremities. Denies any abdominal pain, states that the pain is primarily in her back over her left mid lumbar region. Duration: progressively worsening Similar Symptoms Previously: Yes Related Data Previous Rx's Medication Instructions Recorded chlordiazepoxide HCl 25 mg capsule 25 mg PO Q6H #11 caps 06/28/21 ondansetron 4 mg disintegrating 4 mg PO TID-QID PRN nausea and 08/20/21 tablet vomiting #10 tabs lidocaine 5 % topical patch 1 patch topical DAILY PRN pain 01/15/23 (Lidoderm) (scale score 4-6) #15 ea methocarbamol 500 mg tablet 500 mg PO TID PRN muscular pain 01/15/23 #10 tabs metronidazole 500 mg tablet 500 mg PO BID 10 days #20 tabs 01/15/23 Allergies Allergy/AdvReac Type Severity Reaction Status Date / Time No Known Drug Allergies Allergy Verified 01/15/23 14:53 Review of Systems Review of Systems ROS Unobtainable: All systems reviewed & are unremarkable except as noted in HPI and below Patient History Social History Smoking Status: Current every day smoker Smoking Status: Current every day smoker tobacco type: cigarettes alcohol intake frequency: 3 or more drinks per day Alcohol type: beer Substance Use Type: does not use Exam Initial Vital Signs Initial Vital Signs: Vital Signs Temperature 98.5 F 01/15/23 14:50 Pulse Rate 72 01/15/23 14:50 Respiratory Rate 16 01/15/23 14:50 Blood Pressure 128/70 01/15/23 14:50 Pulse Oximetry 98 01/15/23 14:50 Oxygen Delivery Method Room Air 01/15/23 14:50 Reviewed vitals signs and nursing notes. General: cooperative, comfortable, in no acute distress, well groomed HEENT: symmetrical facial expressions, moist mucous membranes Cardiovascular: regular rate and rhythm, no peripheral edema, warm extremities Respiratory: normal effort, able to speak in complete sentences, without wheezing, stridor, or abnormal breath sounds. No retractions or tachypnea. GI: abdomen soft, nontender to palpation, nondistended, without masses, rebound tenderness or exquisite tenderness with exam. Left CVAT to palpation, no abdominal tenderness to palpation, no pelvic or suprapubic tenderness. Nontender over her lower abdomen MSK: moves all extremities, neurovascularly intact, no weakness, normal tone nontender over lumbar and thoracic spine, ambulatory with steady gait Skin: brisk capillary refill, without pallor or erythema Neuro: normal speech and cognition, A&O x3, ambulatory, clear speech Psych: mental status is grossly normal, congruent mood, normal affect, pleasant and cooperative Course Orders Ordered: ED Orders 01/15/23 15:24 Urine Microscopic Stat 01/15/23 15:40 CBC Auto Diff [Complete Blood Count AUTO DIFF] Stat CMP [Comprehensive Metabolic Panel] Stat CRP [C-Reactive Protein Quant] Stat Lactate (Lactic Acid) Stat 01/15/23 15:52 CT kidney ureter bladder (KUB) Stat 01/15/23 17:22 Wet Prep Tric BV Leonora Stat Discontinued Medications Ketorolac Tromethamine (Ketorolac 30 Mg/Ml Vial) 15 mg IM NOW ONE Stop: 01/15/23 15:53 Last Admin: 01/15/23 16:12 Dose: 15 mg Documented By: ERI Lidocaine (Lidocaine Patch 1 Each Adh..Patch) 1 each TOP NOW ONE Stop: 01/15/23 15:53 Last Admin: 01/15/23 16:13 Dose: 1 each Documented By: ERI Methocarbamol (Methocarbamol 500 Mg Tablet) 500 mg PO NOW ONE Stop: 01/15/23 16:00 Last Admin: 01/15/23 16:12 Dose: Not Given Documented By: ERI Metronidazole (Metronidazole 500 Mg Tablet) 500 mg PO NOW ONE Stop: 01/15/23 17:39 Vital Signs Vital signs: Vital Signs - 8 hr 01/15/23 14:50 Temperature 98.5 F Pulse Rate 72 Respiratory Rate 16 Blood Pressure 128/70 Pulse Oximetry 98 Oxygen Delivery Method Room Air MDM - Back Pain/Injury Lab Data 01/15/23 15:40 01/15/23 15:40 Labs: Lab Results 01/15/23 01/15/23 01/15/23 Range/Units 15:24 15:40 15:40 WBC 5.9 (4.5-11.0) X10^3/uL RBC 4.42 (4.0-5.2) X10^6/uL Hgb 13.6 (12.0-16.0) g/dL Hct 40.5 (36-46) % MCV 91.8 (80-100) fL MCH 30.9 (26-34) PG MCHC 33.7 (30-36) % RDW 12.5 (11.6-14.8) % Plt Count 250 (150-400) X10^3/uL Neut % (Auto) 56.6 (50-75) % Lymph % (Auto) 29.7 (25-40) % [place] % (Auto) 11.3 (3-14) % Eos % (Auto) 1.6 L (2-4) % Baso % (Auto) 0.8 (0-2) % Neut # (Auto) 3300 (2872-4490) /uL Lymph # (Auto) 1700 (0774-8862) /uL [place] # (Auto) 700 (0-900) /uL Eos # (Auto) 100 (0-450) /uL Baso # (Auto) 0 (0-100) /uL Sodium 137 (137-145) mmol/L Potassium 4.3 (3.4-5.1) mmol/L Chloride 104 (98-107) mmol/L Carbon Dioxide 25 (22-32) mmol/L BUN 16 (7-17) mg/dL Creatinine 0.72 (0.52-1.04) mg/dL Estimated GFR > 60 (>60) mL/min BUN/Creatinine Ratio 22.2 H (6-22) Glucose 96 (70-100) mg/dL Lactate (0.7-2.1) mmol/L Calcium 8.9 (8.4-10.2) mg/dL Total Bilirubin 0.6 (0.2-1.3) mg/dL AST 42 H (14-36) IU/L ALT 58 H (<35) IU/L Alkaline Phosphatase 41 (38-126) U/L C-Reactive Protein < 0.5 (<1.0) mg/dL Total Protein 7.5 (6.3-8.2) g/dL Albumin 4.2 (3.5-5.0) g/dL Globulin 3.3 (1.7-4.1) g/dL Albumin/Globulin Ratio 1.3 (1.0-2.8) Urine RBC 1-5/hpf (0-5/HPF) Urine WBC 0-1/hpf (0-5/HPF) Ur Squamous Epith Cells 1-5 /hpf (0-5/HPF) Urine Bacteria Few (2-10) H (None) Ur Culture Indicated? Cult not indicated 01/15/23 Range/Units 15:40 WBC (4.5-11.0) X10^3/uL RBC (4.0-5.2) X10^6/uL Hgb (12.0-16.0) g/dL Hct (36-46) % MCV (80-100) fL MCH (26-34) PG MCHC (30-36) % RDW (11.6-14.8) % Plt Count (150-400) X10^3/uL Neut % (Auto) (50-75) % Lymph % (Auto) (25-40) % [place] % (Auto) (3-14) % Eos % (Auto) (2-4) % Baso % (Auto) (0-2) % Neut # (Auto) (4218-0344) /uL Lymph # (Auto) (5335-9442) /uL [place] # (Auto) (0-900) /uL Eos # (Auto) (0-450) /uL Baso # (Auto) (0-100) /uL Sodium (137-145) mmol/L Potassium (3.4-5.1) mmol/L Chloride (98-107) mmol/L Carbon Dioxide (22-32) mmol/L BUN (7-17) mg/dL Creatinine (0.52-1.04) mg/dL Estimated GFR (>60) mL/min BUN/Creatinine Ratio (6-22) Glucose (70-100) mg/dL Lactate 0.8 (0.7-2.1) mmol/L Calcium (8.4-10.2) mg/dL Total Bilirubin (0.2-1.3) mg/dL AST (14-36) IU/L ALT (<35) IU/L Alkaline Phosphatase (38-126) U/L C-Reactive Protein (<1.0) mg/dL Total Protein (6.3-8.2) g/dL Albumin (3.5-5.0) g/dL Globulin (1.7-4.1) g/dL Albumin/Globulin Ratio (1.0-2.8) Urine RBC (0-5/HPF) Urine WBC (0-5/HPF) Ur Squamous Epith Cells (0-5/HPF) Urine Bacteria (None) Ur Culture Indicated? Point of Care Testing Test Results Negative Urine Dip Bedside Urine Glucose Negative Bedside Urine Bilirubin - Negative Bedside Urine Ketone - Negative Urine Specific [place] 1.020 Bedside Urine Occult Blood - Negative Bedside Urine pH 5.5 Bedside Urine Protein - Negative Bedside Urine Urobilinogen - Negative Bedside Urine Nitrite - Negative Bedside Urine Leukocytes - Negative Esterase MDM Narrative Medical decision making narrative: Chief Complaint: Left flank pain x8 months Independent historian: Patient Differential diagnoses include but are not limited to: Nephrolithiasis, muscle sprain/strain, biliary disease, GERD, appendicitis, colitis, diverticulitis, IBD/IBS, renal colic, lumbar radiculopathy, acute cystitis, pyelonephritis, acute hepatitis, pelvic pain considerations include ovarian cyst, ectopic , fibroids, ovarian mass/cyst, torsion, PID, vaginitis I have independently reviewed the patient's vital signs and nursing notes as well as prior records if available. Pertinent lab findings reviewed: Lab work overall is unremarkable, no leukocytosis or anemia, Pertinent Imaging reviewed: CT KUB Course of care: I saw the patient, ordered for her pain control with Toradol, lidocaine patch and CT KUB is pending, patient is p.o. tolerant, without fever, signs systemic illness, on exam her symptoms are most likely consistent with muscle strain and lumbar radiculopathy as the pain sits in her left hip. Patient denies any vaginal discharge changes but after her CT KUB came back negative for acute abdominal abnormality, encourage patient to self swab for a wet prep which came back positive for clue cells. Will treat patient for bacterial vaginosis, since she has had these symptoms for last 8 months, gave her a full 10 day course, also gave her muscle relaxers and lidocaine patches to help treat lumbar radiculopathy with left-sided sciatica symptoms. She is nontoxic appearing, no ambulatory changes or new weakness. No evidence of PID. Doubt atypical ACS. No peritoneal signs on abdominal exam. Patient remains p.o. tolerant. Serial abdominal exam without increase in abdominal pain. Extensive conversation about ER return precautions and need for close follow-up. Social considerations that may affect disposition: none Questions are addressed and there is agreement with the plan and for follow-up. Patient is appropriate for outpatient management. MIPS: This encounter doesn't have any diagnosis' associated with MIPS criteria. Discharge Plan Departure Patient Disposition: Home Clinical Impression: Acute lumbar radiculopathy, Bacterial vaginosis Instructions: Bacterial Vaginosis, DI for Back Pain With Sciatica, DI for Back Strain or Sprain Activity Restrictions/Additional Instructions: *You have been diagnosed with vaginosis, and what sounds like lumbar radiculopathy which is exacerbation sciatica from inflammation or pain. Since you do not have evidence of kidney stone or bladder infection and this is likely bacterial vaginosis from overgrowth of normal bacteria, this can cause inflammation of the surrounding tissue causing that flank pain like you have. Please take ibuprofen 600 mg every 6 hours and take your antibiotic until they are gone, follow-up with primary care provider for recheck to make sure that it is treated. Sometimes this is persistent and ongoing and recurrent infection for some people. I hope you feel better soon, thank you for your patients and have a good evening. *What to do: *Please continue to take your regular medications as directed. [x ] New medication prescriptions sent to your pharmacy: [ [facility]] [ ] New medication written as a paper prescription [ ] No new medications given *Please follow up with your primary care provider in 2-3 days, call for an appointment. Let them know you were seen in the Emergency Department and that we asked that you be seen for follow-up. We will electronically transmit a record of today's note if your PCP is in our system *If you do not have a primary care provider please contact [phone] to establish care with one of the [facility] primary care providers. *Return to Emergency Department if you should have any new, worsening, or concerning symptoms, such as [fever greater than 101F, chills, worsening pain, persistent vomiting or other bothersome symptoms]. Prescriptions: New methocarbamol 500 mg tablet 500 mg PO TID PRN (Reason: muscular pain) Qty: 10 0RF lidocaine [Lidoderm] 5 % adhesive patch,medicated 1 patch topical DAILY PRN (Reason: pain (scale score 4-6)) Qty: 15 0RF Rx Instructions: leave on most painful area for up to 12 hrs metronidazole 500 mg tablet 500 mg PO BID 10 Days Qty: 20 0RF No Action ondansetron 4 mg tablet,disintegrating 4 mg PO TID-QID PRN (Reason: nausea and vomiting) Qty: 10 0RF chlordiazepoxide HCl 25 mg capsule 25 mg PO Q6H Qty: 11 0RF Rx Instructions: Take 1 p.o. x6 hours x1 day, 1 p.o. x8 hours x1 day, 1 p.o. times 12 hours x1 day, 1 p.o. q.h.s. x2 days [address] [id number] ReportSigned Patient: Gregorio Vincent AMR#: [id number]: 07/03/2001Acct:[id number]/Sex: 19 / MDate of Service: 06/28/21Loc: EDAccession Number: [id number] Procedure: XR chest 1V Ordering Provider: Vanesa Cook D.O. PROCEDURE: XR CHEST 1V INDICATIONS: cough, sore throat, chest pain TECHNIQUE: One view of the chest was acquired. COMPARISON: None. FINDINGS: Surgical changes and devices: None. Lungs and pleura: Lungs are clear. No pleural effusions or pneumothorax. Mediastinum: Mediastinal contours appear normal. Heart size is normal. Bones and chest wall: No suspicious bony lesions. Overlying soft tissues appear unremarkable. IMPRESSION: No acute cardiopulmonary abnormality Dictated by: Arsenio Palm M.D. on 06/28/2021 at 11:07 Approved by: Arsenio Palm M.D. on 06/28/2021 at 11:09 Referrals: Miscellaneous,DoctorMD [Primary Care Provider] - Stand Alone Forms: Patient Portal/API
[2023-01-15 16:08] LABS: Lactate (Lactic Acid) 0.8 mmol/L (0.7-2.1)
[2023-01-15 16:10] LABS: Alanine Aminotransferase 58 IU/L (<35); Albumin 4.2 g/dL (3.5-5.0); Albumin Globulin Ratio 1.3 (1.0-2.8); Alkaline Phosphatase 41 U/L (38-126); Aspartate Aminotransferase 42 IU/L (14-36); BUN Creatinine Ratio 22.2 (6-22); Bilirubin Total 0.6 mg/dL (0.2-1.3); Blood Urea Nitrogen 16 mg/dL (7-17); C-Reactive Protein Quant < 0.5 mg/dL (<1.0); Calcium 8.9 mg/dL (8.4-10.2); Carbon Dioxide 25 mmol/L (22-32); Chloride 104 mmol/L (98-107); Estimated Glomerular Filt Rate > 60 mL/min (>60); Globulin 3.3 g/dL (1.7-4.1); Glucose 96 mg/dL (70-100); HEMOLYSIS < 15 (0-50); Potassium 4.3 mmol/L (3.4-5.1); Sodium 137 mmol/L (137-145); Total Protein 7.5 g/dL (6.3-8.2)
[2023-01-15] MEDS: KETOROLAC 30 MG/ML VIAL 15 MG IM (16:12)
[2023-01-15] MEDS: LIDOCAINE PATCH 1 EACH ADH..PATCH TOP (16:13)
[2023-01-15 16:24] LABS: Bacteria Urine Few (2-10); Culture Indicated Urine Cult Not Indicated; RBC Urine 1-5/HPF (0-5/HPF); Squamous Epithelial Cell Urine 1-5 /HPF (0-5/HPF); WBC Urine 0-1/HPF (0-5/HPF)
[2023-01-15] MEDS: metroNIDAZOLE 500 MG TABLET PO (18:12)
--- NOTE | 2023-01-15 18:21 | PC.NURSE ---
after pt took her antibiotic, I noticed she was shaking. When I asked her about drinking, she responded that she drinks a 6 pack per day. Provider,Martin shine aware.
[2023-01-15 18:23] VITALS: BP 134/90; PULSE 92; RESP 20; O2SAT 100
[2023-01-15] MEDS: LORazepam 0.5 MG TABLET 1 MG PO (18:26)
== END 2023-01-15 18:42 | disposition home or self-care (01) ==
PROVIDERS: Emergency Provider Nurse Practitioner Critical Care Medicine
DX: M54.16 Radiculopathy, lumbar region (principal); N76.0 Acute vaginitis
CPT/HCPCS: 36415; 74176; 80053; 81003; 81015; 81025; 83605; 85025; 86140; 87210; 96372; 99284; J1885

== ENCOUNTER 2024-04-14 20:59 | Emergency (ER) | payer OTHER, MEDICAID, SELFPAY ==
[2024-04-14 21:07] VITALS: BP 135/85; PULSE 98; RESP 18; TEMP 37.1; O2SAT 96; BMI 29.2
--- NOTE | 2024-04-14 21:11 | DI.RAD.S_ITS ---
PROCEDURE: XR WRIST LT MIN 3V INDICATIONS: fall/pain TECHNIQUE: 4 views of the wrist were acquired. COMPARISON: None. FINDINGS: Bones: No fractures or dislocations. No suspicious bony lesions. Soft tissues: No suspicious soft tissue calcifications. IMPRESSION: No acute left wrist fracture or dislocation. Dictated by: Ponce Saunders M.D. on 04/14/2024 at 22:02 Approved by: Ponce Saunders M.D. on 04/14/2024 at 22:02
--- NOTE | 2024-04-14 21:11 | DI.RAD.S_ITS ---
PROCEDURE: XR HAND LT MIN 3V INDICATIONS: fall/pain TECHNIQUE: 3 views of the hand(s) acquired. COMPARISON: None. FINDINGS: Bones: No fractures or dislocations. Carpal bones are normally aligned. No suspicious bony lesions. Soft tissues: No suspicious soft tissue calcifications. IMPRESSION: No acute left hand fracture or dislocation. Dictated by: Ponce Saunders M.D. on 04/14/2024 at 22:01 Approved by: Ponce Saunders M.D. on 04/14/2024 at 22:02
--- NOTE | 2024-04-14 23:53 | ED.UPPEXIN ---
HPI - Extremity Injury (Upper) General Chief Complaint: Extremity Injury, Upper Stated Complaint: lt hand injury Time Seen by Provider: 04/14/24 23:52 Source: patient Mode of arrival: Ambulatory Related Data Home Medications Medication Instructions Recorded Confirmed ibuprofen 200 mg capsule 200 mg PO Q6H PRN 07/14/23 07/14/23 Previous Rx's Medication Instructions Recorded escitalopram oxalate 5 mg tablet 5 mg PO DAILY #30 tabs 07/14/23 (Lexapro) hydroxyzine HCl 25 mg tablet 25 mg PO QID PRN panic attacks #60 07/14/23 tabs naltrexone 50 mg tablet See Rx Instructions PO DAILY 07/14/23 alcohol withdrawal #30 tabs ondansetron 4 mg disintegrating 4 mg PO Q6-8H PRN nausea and 07/14/23 tablet vomiting #30 tabs Allergies Allergy/AdvReac Type Severity Reaction Status Date / Time No Known Drug Allergies Allergy Verified 07/14/23 14:30 Patient History Medical History (Updated 07/30/23 @ 19:59 by Susi Blackwell) Wears contact lenses Bulimia Chronic back pain Carpal tunnel syndrome (~2011) ANIVAL (generalized anxiety disorder) Family History (Updated 07/30/23 @ 20:02 by Susi Blackwell) Father Alcoholic Diabetes mellitus Hypertension Mother Alcoholic Mental health problem Family/Other ADHD Social History Smoking Status: Current every day smoker Smoking Status: Current every day smoker tobacco type: cigarettes alcohol intake frequency: 3 or more drinks per day Alcohol type: beer Substance Use Type: does not use Exam Initial Vital Signs Initial Vital Signs: Vital Signs Temperature 98.8 F 04/14/24 21:07 Pulse Rate 98 H 04/14/24 21:07 Respiratory Rate 18 04/14/24 21:07 Blood Pressure 135/85 04/14/24 21:07 Pulse Oximetry 96 04/14/24 21:07 Oxygen Delivery Method Room Air 04/14/24 21:07 Course Orders Ordered: ED Orders 04/14/24 21:11 XR hand LT min 3V Stat XR wrist LT min 3V Stat Vital Signs Vital signs: Vital Signs - 8 hr 04/14/24 21:07 Temperature 98.8 F Pulse Rate 98 H Respiratory Rate 18 Blood Pressure 135/85 Pulse Oximetry 96 Oxygen Delivery Method Room Air Discharge Plan Departure Prescriptions: No Action ibuprofen 200 mg capsule 200 mg PO Q6H PRN escitalopram oxalate [Lexapro] 5 mg tablet 5 mg PO DAILY Qty: 30 11RF hydroxyzine HCl 25 mg tablet 25 mg PO QID PRN (Reason: panic attacks) Qty: 60 11RF naltrexone 50 mg tablet See Rx Instructions PO DAILY Qty: 30 11RF Rx Instructions: 25 mg (1/2 tab) orally daily for 6 days, then 1 tab by mouth daily ondansetron 4 mg tablet,disintegrating 4 mg PO Q6-8H PRN (Reason: nausea and vomiting) Qty: 30 11RF Referrals: Chele Morrow DO [Primary Care Provider] -
== END 2024-04-15 00:05 | disposition left against medical advice (07) ==
PROVIDERS: Emergency Provider Emergency Medicine; PCP Family Medicine
DX: M79.645 Pain in left finger(s) (principal)
CPT/HCPCS: 73110; 73130; 99281